=== PATIENT | male | born 1940 | race Caucasian/White ===

== ENCOUNTER 2021-10-23 08:20 | Inpatient (IN) | payer MEDICARE ==
[2021-10-24] MEDS ORDERED: Acetaminophen 325 MG Tab PO PRN (16:52)
[2021-10-24] MEDS ORDERED: Hypromellose 0.3% Ophth Soln 15 ML Bottle EYEBOTH PRN (16:58)
[2021-10-24] MEDS: Gabapentin 400 MG Cap PO SCH (20:49)
[2021-10-24] MEDS: Sulfamethoxazole/Trimethoprim 800-160 MG Tab PO SCH (20:49)
[2021-10-25] MEDS: Finasteride 5 MG Tab PO SCH (08:38)
[2021-10-25] MEDS: amLODIPine 10 MG Tab PO SCH (08:38)
[2021-10-25] MEDS: Cholecalciferol (Vitamin D3) 25 MCG Tab PO SCH (08:38)
[2021-10-25] MEDS: Polyethylene Glycol 3350 Powder 17 GM Packet PO SCH (08:39)
[2021-10-25] MEDS: Sulfamethoxazole/Trimethoprim 800-160 MG Tab PO SCH (08:40)
[2021-10-25] MEDS: Gabapentin 400 MG Cap PO SCH ×3 (08:43→21:59)
[2021-10-25] MEDS: FINGOLIMOD HCL 0.5 MG PO SCH (14:25)
[2021-10-25] MEDS: DALFAMPRIDINE 10 MG PO SCH ×2 (14:25→21:56)
[2021-10-25] MEDS ORDERED: Ketorolac 30 MG/ML SDV IM PRN (21:35)
[2021-10-26] MEDS: Finasteride 5 MG Tab PO SCH (09:12)
[2021-10-26] MEDS: Polyethylene Glycol 3350 Powder 17 GM Packet PO SCH (09:12)
[2021-10-26] MEDS: amLODIPine 10 MG Tab PO SCH (09:12)
[2021-10-26] MEDS: Gabapentin 400 MG Cap PO SCH ×3 (09:12→21:30)
[2021-10-26] MEDS: FINGOLIMOD HCL 0.5 MG PO SCH (09:13)
[2021-10-26] MEDS: DALFAMPRIDINE 10 MG PO SCH ×2 (09:13→21:26)
[2021-10-26] MEDS: Cholecalciferol (Vitamin D3) 25 MCG Tab PO SCH (09:13)
[2021-10-27] MEDS: DALFAMPRIDINE 10 MG PO SCH ×2 (08:45→21:27)
[2021-10-27] MEDS: FINGOLIMOD HCL 0.5 MG PO SCH (08:45)
[2021-10-27] MEDS: Cholecalciferol (Vitamin D3) 25 MCG Tab PO SCH (08:46)
[2021-10-27] MEDS: Finasteride 5 MG Tab PO SCH (08:46)
[2021-10-27] MEDS: amLODIPine 10 MG Tab PO SCH (08:47)
[2021-10-27] MEDS: Polyethylene Glycol 3350 Powder 17 GM Packet PO SCH (08:53)
[2021-10-27] MEDS: Gabapentin 400 MG Cap PO SCH ×3 (09:00→21:29)
[2021-10-28] MEDS: DALFAMPRIDINE 10 MG PO SCH ×2 (08:43→21:31)
[2021-10-28] MEDS: Gabapentin 400 MG Cap PO SCH ×3 (08:43→21:34)
[2021-10-28] MEDS: Polyethylene Glycol 3350 Powder 17 GM Packet PO SCH (08:44)
[2021-10-28] MEDS: FINGOLIMOD HCL 0.5 MG PO SCH (08:44)
[2021-10-28] MEDS: amLODIPine 10 MG Tab PO SCH (08:45)
[2021-10-28] MEDS: Cholecalciferol (Vitamin D3) 25 MCG Tab PO SCH (08:45)
[2021-10-28] MEDS: Finasteride 5 MG Tab PO SCH (08:45)
[2021-10-29] MEDS: Polyethylene Glycol 3350 Powder 17 GM Packet PO SCH (08:56)
[2021-10-29] MEDS: Gabapentin 400 MG Cap PO SCH ×3 (08:56→20:52)
[2021-10-29] MEDS: Cholecalciferol (Vitamin D3) 25 MCG Tab PO SCH (08:56)
[2021-10-29] MEDS: Finasteride 5 MG Tab PO SCH (08:56)
[2021-10-29] MEDS: FINGOLIMOD HCL 0.5 MG PO SCH (08:57)
[2021-10-29] MEDS: DALFAMPRIDINE 10 MG PO SCH ×2 (08:57→20:52)
[2021-10-29] MEDS: amLODIPine 10 MG Tab PO SCH (08:58)
[2021-10-30] MEDS: DALFAMPRIDINE 10 MG PO SCH ×2 (09:00→20:10)
[2021-10-30] MEDS: Finasteride 5 MG Tab PO SCH (09:00)
[2021-10-30] MEDS: amLODIPine 10 MG Tab PO SCH (09:00)
[2021-10-30] MEDS: Gabapentin 400 MG Cap PO SCH ×3 (09:00→20:12)
[2021-10-30] MEDS: Cholecalciferol (Vitamin D3) 25 MCG Tab PO SCH (09:01)
[2021-10-30] MEDS: Polyethylene Glycol 3350 Powder 17 GM Packet PO SCH (09:01)
[2021-10-30] MEDS: FINGOLIMOD HCL 0.5 MG PO SCH (09:01)
[2021-10-31] MEDS: Polyethylene Glycol 3350 Powder 17 GM Packet PO SCH (08:00)
[2021-10-31] MEDS: amLODIPine 10 MG Tab PO SCH (08:00)
[2021-10-31] MEDS: Gabapentin 400 MG Cap PO SCH (08:00)
[2021-10-31] MEDS: Finasteride 5 MG Tab PO SCH (08:01)
[2021-10-31] MEDS: Cholecalciferol (Vitamin D3) 25 MCG Tab PO SCH (08:01)
[2021-10-31] MEDS: FINGOLIMOD HCL 0.5 MG PO SCH (08:02)
[2021-10-31] MEDS: DALFAMPRIDINE 10 MG PO SCH (08:02)
== END 2021-10-31 10:35 | disposition home health service (06) | DRG 947 ==
LOC: EDBD → FB.MS 10-24 14:55
PROVIDERS: ADMIT Family Medicine; ATTEND Student in an Organized Health Care Education/Training Program
DX: R53.81 Other malaise (principal); U07.1 COVID-19; F33.1 Major depressive disorder, recurrent, moderate; E44.0 Moderate protein-calorie malnutrition; R62.7 Adult failure to thrive; N31.9 Neuromuscular dysfunction of bladder, unspecified; I10 Essential (primary) hypertension; G35 Multiple sclerosis; N41.1 Chronic prostatitis; N40.0 Benign prostatic hyperplasia without lower urinary tract symptoms; E78.5 Hyperlipidemia, unspecified; Z87.442 Personal history of urinary calculi; Z68.21 Body mass index [BMI] 21.0-21.9, adult
CPT/HCPCS: 97116-GP; 97161-GP; 97166-GO; 97530-GO; 97535-GO; 99305; 99316; A9270-GY